=== PATIENT | female | born 1945 | race American Indian/Alaskan Native ===

== ENCOUNTER 2019-12-15 18:51 | Emergency (ER) | payer MEDICARE ==
--- NOTE | 2019-12-15 19:35 | Event Note ---
ED Screening Note ED Screening Note: palpitations generalized weakness fatigue states she had an episode of syncope cough sneezing no CP no SOB head feels headache blurry vision, has improved no fever no vomiting no diarrhea PMHx HTN PSHx of brain surgery from aneurysm This initial assessment/diagnostic orders/clinical plan/treatment(s) is/are subject to change based on patients health status, clinical progression and re- assessment by fellow clinical providers in the ED. Further treatment and workup at subsequent clinical providers discretion. Patient/guardian urged not to elope from the ED as their condition may be serious if not clinically assessed and managed. Initial orders include: labs, EKG, CT head
--- NOTE | 2019-12-15 20:31 | Cat Scan Report ---
CT head/brain wo con INDICATION / CLINICAL INFORMATION: 74 years Female; syncope. TECHNIQUE: Routine CT head without contrast. All CT scans at this location are performed using CT dos e reduction for ALARA by means of automated exposure control. COMPARISON: None. FINDINGS: BRAIN / INTRACRANIAL CONTENTS: The motion degrades image quality despite repeat imaging. However, thi s mild cerebral white matter disease most consistent with microvascular angiopathy. There is also mil d cerebral atrophy with associated prominence of the ventricular system. There is presence of right-s ided eloisa hole.. There are foci of calcification within the basal ganglia and along the falx. However , there is no definitive CT evidence of acute intracranial hemorrhage or significant mass effect. ORBITS: No significant abnormality of visualized orbits. SINUSES / MASTOIDS: There is mild mucosal thickening within the visualized posterior left maxillary s inus and bilateral ethmoid air cells. CRANIOCERVICAL JUNCTION: No significant abnormality. ADDITIONAL FINDINGS: None. IMPRESSION: 1. 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 Signer Name: Kale Kenny MD Signed: 12/15/2019 8:27 PM Workstation Name: [id number]
[2019-12-15 20:54] LABS: Alanine Aminotransferase 25 units/L (7-56); Albumin 4.2 g/dL (3.9-5); BUN/Creatinine Ratio 14; Blood Urea Nitrogen 11 mg/dL (7-17); Calcium 9.7 mg/dL (8.4-10.2); Hemolysis Index 4
[2019-12-15 21:16] LABS: Basophils % (Auto) 0.4 % (0.0-1.8); Eosinophils # (Auto) 0.1 K/mm3 (0.0-0.4); Eosinophils % (Auto) 1.7 % (0.0-4.3); Hematocrit 40.4 % (30.3-42.9); Hemoglobin 13.2 gm/dl (10.1-14.3); Lymphocytes % (Auto) 16.1 % (13.4-35.0); Mean Corpuscular HGB Conc 33 % (30-34); Mean Corpuscular Volume 80 fl (79-97); Monocytes # (Auto) 0.5 K/mm3 (0.0-0.8); Monocytes % (Auto) 7.6 % (0.0-7.3); Platelet Count 214 K/mm3 (140-440); Red Blood Count 5.06 M/mm3 (3.65-5.03); Red Cell Distribution Width 14.2 % (13.2-15.2)
--- NOTE | 2019-12-15 21:19 | Emergency Department Report ---
ED Syncope HPI - General Chief Complaint: Syncope Stated Complaint: N/V Time Seen by Provider: 12/15/19 19:32 Source: patient, family - History of Present Illness Initial Comments: Patient is 74 years old female with history of brain aneurysm surgery and borderline hypertension. Patient brought to the emergency room accompanied by her son for evaluation of 1 episode of syncope happened today. Patient stated that her symptoms started yesterday with runny nose cough and congestion. She stated that she called her doctor in [place] and prescribed her some cough medicine but she did not take it yet. Patient stated that she thinks she passed out but she is not sure. Patient currently denying any headache, weakness,numbness,difficulty speaking or unsteady gait. No neck pain. Patient denies any chest pain or shortness of breath. Patient stated that she feels like she is back to normal. Timing/Prior Episodes: no prior history, single episode today Precipitating Factors: Positive: none Context: standing Loss of Consciousness: brief (seconds) Current Symptoms: back to normal - Related Data Allergies/Adverse Reactions: Allergies codeine Allergy (Verified 12/15/19 19:27) Vomiting ED Review of Systems ROS: Stated complaint: N/V Other details as noted in HPI Comment: All other systems reviewed and negative Constitutional: denies: chills, fever ENT: denies: throat pain Respiratory: cough. denies: orthopnea, shortness of breath, SOB with exertion, SOB at rest, wheezing Cardiovascular: denies: chest pain, palpitations Gastrointestinal: denies: abdominal pain, nausea, vomiting, diarrhea, constipation, hematemesis, melena, hematochezia Musculoskeletal: denies: back pain Neurological: denies: headache, weakness, numbness, paresthesias, confusion, abnormal gait ED Past Medical Hx - Past Medical History Previous Medical History?: Yes Hx Hypertension: Yes - Surgical History Past Surgical History?: Yes Additional Surgical History: brain surgery for aneurysm - Social History Smoking Status: Never Smoker Substance Use Type: None ED Physical Exam - General Limitations: No Limitations General appearance: alert, in no apparent distress - Head Head exam: Present: atraumatic, normocephalic, normal inspection - Eye Eye exam: Present: normal appearance, PERRL - ENT ENT exam: Present: normal exam, normal orophraynx, mucous membranes moist. Absent: mucous membranes dry - Neck Neck exam: Present: normal inspection, full ROM. Absent: tenderness, meningismus, lymphadenopathy, thyromegaly - Respiratory Respiratory exam: Present: normal lung sounds bilaterally. Absent: respiratory distress, wheezes, rales, rhonchi, stridor, decreased breath sounds, prolonged expiratory - Cardiovascular Cardiovascular Exam: Present: regular rate, normal rhythm, normal heart sounds - GI/Abdominal GI/Abdominal exam: Present: soft, normal bowel sounds. Absent: distended, tenderness, guarding, rebound, rigid, mass, pulsatile mass - Extremities Exam Extremities exam: Present: normal inspection, full ROM, normal capillary refill. Absent: tenderness, pedal edema, calf tenderness - Back Exam Back exam: Present: normal inspection, full ROM. Absent: CVA tenderness (R), CVA tenderness (L), muscle spasm, paraspinal tenderness, vertebral tenderness - Neurological Exam Neurological exam: Present: alert, oriented X3, CN II-XII intact, normal gait, reflexes normal. Absent: motor sensory deficit - Psychiatric Psychiatric exam: Present: normal mood - Skin Skin exam: Present: warm, intact, normal color ED Course Vital Signs 12/15/19 12/15/19 12/15/19 19:29 19:32 21:19 Temperature 98.6 F 98.6 F 98.6 F Pulse Rate 66 67 73 Respiratory 16 16 11 L Rate Blood Pressure 127/61 127/61 126/104 Blood Pressure 126/104 [righ arm] O2 Sat by Pulse 98 99 97 Oximetry 12/15/19 12/15/19 12/15/19 21:30 21:46 22:00 Temperature Pulse Rate 77 80 79 Respiratory 18 17 14 Rate Blood Pressure 126/104 126/104 126/104 Blood Pressure [righ arm] O2 Sat by Pulse 98 97 96 Oximetry 12/15/19 22:15 Temperature Pulse Rate 79 Respiratory 14 Rate Blood Pressure Blood Pressure [righ arm] O2 Sat by Pulse 97 Oximetry ED Medical Decision Making - Lab Data Result diagrams: 12/15/19 20:29 12/15/19 20:29 - EKG Data -: EKG Interpreted by Ks EKG shows normal: sinus rhythm Rate: normal - EKG Data Interpretation: no acute changes - Radiology Data Radiology results: report reviewed - Medical Decision Making Patient is 74 years old female with history of brain aneurysm surgery and borderline hypertension. Patient brought to the emergency room accompanied by her son for evaluation of 1 episode of syncope happened today. Patient stated that her symptoms started yesterday with runny nose cough and congestion. She stated that she called her doctor in [place] and prescribed her some cough medicine but she did not take it yet. Patient stated that she thinks she passed out but she is not sure. Patient currently denying any headache, weakness,numbness,difficulty speaking or unsteady gait. No neck pain. Patient denies any chest pain or shortness of breath. Patient stated that she feels like she is back to normal. Patient remained asymptomatic in the emergency room except for coughing and sneezing. Patient labs reviewed and is unremarkable. CT brain is negative for acute finding. Chest x-ray is unremarkable. EKG showed no ST elevation or depression. Troponin is negative. Patient stated that she is feeling much be tter and she is asking for medication to help with the cough and sneezing. Patient given prescription for Robitussin and advised to follow-up with her primary care physician in the next 2 to 3 days and to return to the ER if she develop any new symptoms. Critical care attestation.: If time is entered above; I have spent that time in minutes in the direct care of this critically ill patient, excluding procedure time. ED Disposition Clinical Impression: Syncope, Upper respiratory infection Disposition: DC-01 TO HOME OR SELFCARE Is pt being admited?: No Condition: Stable Instructions: Syncope (ED), Upper Respiratory Infection (ED) Referrals: PRIMARY CARE, [Primary Care Provider] - 3-5 Days
--- NOTE | 2019-12-15 21:36 | XRay Report ---
CHEST 1 VIEW INDICATION / CLINICAL INFORMATION: MAIN: cough; Cough and runny nose started yesterday. Tonight felt heart heart race and then felt diz zy and nausea. States fainted and then N&V. Generalized weakness. NOnlabored. MAEW. . COMPARISON: None available. FINDINGS: SUPPORT DEVICES: None. HEART / MEDIASTINUM: No significant abnormality. LUNGS / PLEURA: No significant pulmonary or pleural abnormality. No pneumothorax. ADDITIONAL FINDINGS: No significant additional findings. IMPRESSION: 1. No acute findings. Signer Name: Ladarius Luz MD Signed: 12/15/2019 9:32 PM Workstation Name: [id number]
[2019-12-15 22:53] LABS: Bacteria,Urine 1+ /HPF (Negative); Bilirubin,Urine NEG (Negative); Blood,Urine SM (Negative); Color,Urine Yellow (Yellow); Mucus,Urine 2+ /HPF; Protein,Urine <15 mg/dL mg/dL (Negative); Urobilinogen,Urine < 2.0 mg/dL (<2.0)
[2019-12-15 23:24] VITALS: BP 157/83
== END 2019-12-15 23:26 | disposition home or self-care (01) ==
LOC: ED 18:51
DX: J06.9 Acute upper respiratory infection, unspecified (principal); R55 Syncope and collapse; I10 Essential (primary) hypertension; Z98.890 Other specified postprocedural states; Z88.6 Allergy status to analgesic agent
CPT/HCPCS: 36415; 70450; 71045; 80053; 81001; 82550; 82962; 83735; 84100; 84443; 84484; 85025; 93005; 93010